=== PATIENT | male | born 1965 | race Caucasian/White ===

== ENCOUNTER 2021-05-14 16:59 | Emergency (ER) | payer BC ==
[2021-05-14] MEDS ORDERED: Pantoprazole 40 MG Vial IVPUSH ONE (19:32)
[2021-05-14] MEDS ORDERED: Ondansetron 4 MG/2 ML SDV IVPUSH PRN (19:32)
[2021-05-14] MEDS: Morphine 4 MG/ML Syringe IVPUSH PRN ×3 (19:47→23:21)
[2021-05-14] MEDS: Sodium Chloride 0.9% 10 ML Syringe FLUSH PRN ×2 (19:48→20:55)
--- NOTE | 2021-05-14 20:29 | EDM.PDOC ---
ED HPI GENERAL MEDICAL PROBLEM - General Chief Complaint: Gastrointestinal Problem Stated Complaint: STOMACH PAIN, BLOODY STOOL Time Seen by Provider: 05/14/21 19:05 Source of Information: Reports: Patient, Family () History Limitations: Reports: No Limitations - History of Present Illness INITIAL COMMENTS - FREE TEXT/NARRATIVE: Patient presents emergency room today secondary to bloody stools at least 15 reported today starting around 6 AM he also reports nausea and vomiting from abdominal pain this a.m. and sweating episodes. Patient states that pain is a 10 out of 10 sharp and achy in nature. He denies any fevers or chills lightheaded dizziness he is constantly moving as noted during my exam secondary to abdominal pain. History is significant for a CT in February that showed questionable lytic lesions. He had a biopsy 2 weeks ago and at this time they are awaiting results states that it is possible multiple myeloma versus an undifferentiated cancer of unknown site with bony mets PMH--anxiety/depression, chronic pain (undiagnosed) Meds--hydrocodone, gabapentin, wellbutrin, flexaril Tob--former EtOH/Drugs--denies Has not had COVID infection, reports having had COVID immunization Onset: Today Onset Time: 06:00 Lower Abdomen Pain Score (Numeric/FACES): 10 - Related Data Allergies Allergy/AdvReac Type Severity Reaction Status Date / Time No Known Allergies Allergy Verified 05/14/21 19:08 Home Meds: Home Meds Cyclobenzaprine [Flexeril] 10 mg PO TID 05/14/21 [History] Gabapentin [Neurontin] 100 mg PO TID 05/14/21 [History] buPROPion HCL [Bupropion Xl] 300 mg PO DAILY 05/14/21 [History] Past Medical History Musculoskeletal History: Reports: Fracture Psychiatric History: Reports: Anxiety, Depression Oncologic (Cancer) History: Reports: Bone Other Oncologic History: possible Bone CA - Infectious Disease History Infectious Disease History: Reports: Chicken Pox, Influenza, Measles, Mumps - Past Surgical History Other GI Surgeries/Procedures: Lypoma removal Social & Family History - Tobacco Use Tobacco Use Status *Q: Never Tobacco User - Caffeine Use Caffeine Use: Reports: Coffee, Soda - Recreational Drug Use Recreational Drug Use: No ED ROS GENERAL - Review of Systems Review Of Systems: Comprehensive ROS is negative, except as noted in HPI. Constitutional: Denies: Fever, Chills GI/Abdominal: Reports: Abdominal Pain, Bloody Stool, Diarrhea, Nausea, Vomiting ED EXAM, GENERAL - Physical Exam Exam: See Below Exam Limited By: No Limitations General Appearance: Alert, WD/WN, Moderate Distress (Secondary to abdominal pain is apparent that he is quite uncomfortable as he is moving around in bed quite frequently been up and down) Eye Exam: Bilateral Eye: EOMI, Normal Inspection, PERRL Ears: Normal External Exam, Hearing Grossly Normal Nose: Normal Inspection Throat/Mouth: Normal Inspection, Normal Lips, Normal Oropharynx, Normal Voice, No Airway Compromise Head: Atraumatic, Normocephalic Neck: Normal Inspection, Supple, Non-Tender, Full Range of Motion. No: Lymphadenopathy (R), Lymphadenopathy (L) Respiratory/Chest: No Respiratory Distress, Lungs Clear, Normal Breath Sounds Cardiovascular: Normal Peripheral Pulses, Regular Rate, Rhythm, No Edema, No Murmur Peripheral Pulses: 2+: Radial (L), Radial (R), Dorsalis Pedis (L), Dorsalis Pedis (R) GI/Abdominal: Soft, Tender (Patient has diffuse abdominal tenderness that is focal in the lower abdominal area), Abnormal Bowel Sounds (Bowel sounds are decreased in nature hypoactive throughout) (Male) Exam: Deferred Rectal (Males) Exam: Normal Exam, Heme + Stool, Hemorrhoids (Hemorrhoid is noted to be around 5:00 it is swollen and tender). No: Bloody Stool, Decreased Rectal Tone Back Exam: Normal Inspection, Full Range of Motion Extremities: Normal Inspection, Normal Range of Motion, No Pedal Edema, Normal Capillary Refill Neurological: Alert, Oriented, CN II-XII Intact, Normal Cognition, No Motor/Sensory Deficits Psychiatric: Normal Affect, Normal Mood Skin Exam: Warm, Dry, Intact, Normal Color Course - Vital Signs Text/Narrative:: 2029--initial labs have been reviewed noted to have mildly elevated white blood cell count at 16, stable H&H at 14.3/41.5 he does have 82% neutrophil shift. Also is noted to have a anion gap of 18 and Hemoccult positive. Additional labs were ordered to include lactic acid blood cultures and IV antibiotics have been ordered. CT abdomen pelvis has been ordered. 2036--patient updated on lab results further lab testing and recommendation for CT of abdomen and pelvis. He states that pain medication did markedly help with his pain he is resting comfortably at this time I did discuss with him that should more pain medication be needed he would just need to ask the ER nurse patient verbalized understanding agreement with plan of care at this time 2209--lactate is negative at 1.2. Still awaiting CT abdomen pelvis results 2216--see if call from radiology regarding CT results specifically noted for wall thickening from descending colon down there is a low probability of ischemic bowel although given mild changes radiologist feels low likelihood. She does comment on multiple lytic lesions noted suggestive highly for multiple myeloma. Specifically she remarked on the pathological fracture noted on the left seventh rib as well as areas on the acetabulum on the right side for a near complete erosion that is likely too soon result in a pathological fracture. See final report for full details 2236in room to discussed with patient and at bedside today's ER findings as well as recommendations and care will discharge on oral antibiotics steroids pain medication and recommend that they return to their local home area for follow-up care regarding PCM and oncology services. I also did discuss with my recommendation to obtain copies of today's ER visit as well as radiological report to take with him back to [facility] for PCM and oncology care follow-up patient and spouse verbalized understanding agreement with plan of care all questions were answered ready for discharge at this time Last Recorded V/S: Last Vital Signs Temp 98.0 F 05/14/21 19:10 Pulse 85 05/14/21 19:10 Resp 18 05/14/21 19:10 BP 114/110 H 05/14/21 19:10 Pulse Ox 99 05/14/21 19:10 - Orders/Labs/Meds Orders: Active Orders 24 hr Category Date Time Status CULTURE BLOOD [BC] Urgent Lab 05/14/21 20:35 Received CULTURE BLOOD [BC] Urgent Lab 05/14/21 20:45 Received PATIENT RETYPE [BBK] Stat Lab 05/14/21 19:44 Results TYPE AND SCREEN [BBK] Stat Lab 05/14/21 19:44 Results Iopamidol [Isovue-300 (61%)] Med 05/14/21 20:45 Active 134 ml IV . DIRECTED Morphine Med 05/14/21 19:31 Active 4 mg IVPUSH Q2H PRN Ondansetron [Zofran] Med 05/14/21 19:32 Active 4 mg IVPUSH Q6H PRN Piperacillin/Tazobactam [Zosyn] 3.375 gm Med 05/14/21 20:30 Active Sodium Chloride 0.9% [Normal Saline] 50 ml IV ONETIME Sodium Chloride 0.9% [Normal Saline] 80 ml Med 05/14/21 20:45 Active IV ASDIRECTED Sodium Chloride 0.9% [Saline Flush] Med 05/14/21 19:31 Active 10 ml FLUSH ASDIRECTED PRN Blood Culture x2 Reflex Set [OM.PC] Urgent Oth 05/14/21 20:27 Ordered Saline Lock Insert [OM.PC] Routine Oth 05/14/21 19:31 Ordered Medication Orders Piperacillin Sod/Tazobactam (Sod 3.375 gm/ Sodium Chloride) 50 mls @ 100 mls/hr IV ONETIME LYNNETTE Last Admin: 05/14/21 21:17 Dose: 100 mls/hr Documented by: ZOFIA Sodium Chloride (Normal Saline) 80 mls @ 3 mls/sec IV ASDIRECTED LYNNETTE Last Admin: 05/14/21 20:55 Dose: 3 mls/sec Documented by: TROY Iopamidol (Iopamidol 612 Mg/Ml 150 Ml Bottle) 134 ml IV . DIRECTED LYNNETTE Last Admin: 05/14/21 20:55 Dose: 134 ml Documented by: TROY Morphine Sulfate (Morphine 4 Mg/Ml Syringe) 4 mg IVPUSH Q2H PRN PRN Reason: Abdominal Pain Last Admin: 05/14/21 21:17 Dose: 4 mg Documented by: Admin: 05/14/21 19:47 Dose: 4 mg Documented by: ZOFIA Ondansetron HCl (Ondansetron 4 Mg/2 Ml Sdv) 4 mg IVPUSH Q6H PRN PRN Reason: Nausea/Vomiting Last Admin: 05/14/21 19:47 Dose: 4 mg Documented by: ZOFIA Sodium Chloride (Sodium Chloride 0.9% 10 Ml Syringe) 10 ml FLUSH ASDIRECTED PRN PRN Reason: Keep Vein Open Last Admin: 05/14/21 20:55 Dose: 10 ml Documented by: Admin: 05/14/21 19:48 Dose: 10 ml Documented by: ZOFIA Labs: Laboratory Tests 05/14/21 05/14/21 05/14/21 Range/Units 19:44 19:44 19:44 WBC 16.0 H (4.5-11.0) K/uL RBC 4.89 (4.30-5.90) M/uL Hgb 14.3 (12.0-15.0) g/dL Hct 41.5 (40.0-54.0) % MCV 85 (80-98) fL MCH 29 (27-31) pg MCHC 35 (32-36) % Plt Count 278 (150-400) K/uL Neut % (Auto) 82.0 H (36-66) % Lymph % (Auto) 10.2 L (24-44) % [place] % (Auto) 7.7 H (2-6) % Eos % (Auto) 0.0 L (2-4) % Baso % (Auto) 0.1 (0-1) % Sodium 137 L (140-148) mmol/L Potassium 4.1 (3.6-5.2) mmol/L Chloride 100 (100-108) mmol/L Carbon Dioxide 23 (21-32) mmol/L Anion Gap 18.1 H (5.0-14.0) mmol/L BUN 26 H (7-18) mg/dL Creatinine 1.0 (0.8-1.3) mg/dL Est Cr Clr Drug Dosing 77.09 mL/min Estimated GFR (MDRD) > 60 (>60) Glucose 105 (74-106) mg/dL Lactic Acid (0.4-2.0) mmol/L Calcium 9.5 (8.5-10.1) mg/dL Total Bilirubin 0.5 (0.2-1.0) mg/dL AST 26 (15-37) U/L ALT 48 (12-78) U/L Alkaline Phosphatase 90 (46-116) U/L Total Protein 8.7 H (6.4-8.2) g/dL Albumin 3.7 (3.4-5.0) g/dL Globulin 5.0 H (2.3-3.5) g/dL Albumin/Globulin Ratio 0.7 L (1.2-2.2) Blood Type AB POSITIVE Gel Antibody Screen Negative 05/14/21 Range/Units 20:27 WBC (4.5-11.0) K/uL RBC (4.30-5.90) M/uL Hgb (12.0-15.0) g/dL Hct (40.0-54.0) % MCV (80-98) fL MCH (27-31) pg MCHC (32-36) % Plt Count (150-400) K/uL Neut % (Auto) (36-66) % Lymph % (Auto) (24-44) % [place] % (Auto) (2-6) % Eos % (Auto) (2-4) % Baso % (Auto) (0-1) % Sodium (140-148) mmol/L Potassium (3.6-5.2) mmol/L Chloride (100-108) mmol/L Carbon Dioxide (21-32) mmol/L Anion Gap (5.0-14.0) mmol/L BUN (7-18) mg/dL Creatinine (0.8-1.3) mg/dL Est Cr Clr Drug Dosing mL/min Estimated GFR (MDRD) (>60) Glucose (74-106) mg/dL Lactic Acid 1.2 (0.4-2.0) mmol/L Calcium (8.5-10.1) mg/dL Total Bilirubin (0.2-1.0) mg/dL AST (15-37) U/L ALT (12-78) U/L Alkaline Phosphatase (46-116) U/L Total Protein (6.4-8.2) g/dL Albumin (3.4-5.0) g/dL Globulin (2.3-3.5) g/dL Albumin/Globulin Ratio (1.2-2.2) Blood Type Gel Antibody Screen Meds: Medications Generic Name Dose Route Start Last Admin Trade Name Freq PRN Reason Stop Dose Admin Piperacillin Sod/Tazobactam 50 mls @ 100 mls/hr 05/14/21 20:30 05/14/21 21:17 Sod 3.375 gm/ Sodium Chloride IV 100 mls/hr ONETIME LYNNETTE Administration Sodium Chloride 80 mls @ 3 mls/sec 05/14/21 20:45 05/14/21 20:55 Normal Saline IV 3 mls/sec ASDIRECTED LYNNETTE Administration Iopamidol 134 ml 05/14/21 20:45 05/14/21 20:55 Iopamidol 612 Mg/Ml 150 Ml Bottle IV 134 ml . DIRECTED LYNNETTE Administration Morphine Sulfate 4 mg 05/14/21 19:31 05/14/21 21:17 Morphine 4 Mg/Ml Syringe IVPUSH 4 mg Q2H PRN Administration Abdominal Pain Ondansetron HCl 4 mg 05/14/21 19:32 05/14/21 19:47 Ondansetron 4 Mg/2 Ml Sdv IVPUSH 4 mg Q6H PRN Administration Nausea/Vomiting Sodium Chloride 10 ml 05/14/21 19:31 05/14/21 20:55 Sodium Chloride 0.9% 10 Ml Syringe FLUSH 10 ml ASDIRECTED PRN Administration Keep Vein Open Discontinued Medications Generic Name Dose Route Start Last Admin Trade Name Freq PRN Reason Stop Dose Admin Pantoprazole Sodium 40 mg 05/14/21 19:32 05/14/21 19:48 Pantoprazole 40 Mg Vial IVPUSH 05/14/21 19:33 40 mg ONETIME ONE Administration - Radiology Interpretation Free Text/Narrative:: CT abdomen pelvis final report-- #1 mild wall thickening of the descending and sigmoid portions of colon represent nonspecific colitis versus ischemia 2 innumerable lytic lesions throughout the skeleton likely due to multiple myeloma large lytic lesion on T9 vertebrae with cortical breakthrough of the inferior endplate large lytic lesion in the right acetabular roof with cortical breakthrough adjacent to the femoral head and pathological fracture of right lateral seventh rib Departure - Departure Time of Disposition: 23:00 Disposition: Home, Self-Care 01 Condition: Good Clinical Impression: Colitis, Lytic bone lesions on xray, Pathological fracture of rib of right side - Discharge Information *PRESCRIPTION DRUG MONITORING PROGRAM REVIEWED*: Yes *COPY OF PRESCRIPTION DRUG MONITORING REPORT IN PATIENT FERNANDO: Yes Instructions: Dehydration, Adult, [id number], Nausea and Vomiting, Adult, [id number], Pain Medicine Instructions, [id number], Bloody Diarrhea, Colitis Referrals: PCP,None [Primary Care Provider] - Forms: ED Department Discharge Additional Instructions: Ensure that you are drinking plenty of fluidswater, juices, sports drinks of choice to stay well-hydrated. When you are feeling better your appetite will improve return and you can advance diet slowly Tonight in the emergency room you were given your initial dose of IV antibiotic that you are oral antibiotics for home do not need to be started until the morning. You have also been provided with Rufus 5/325 number 18 tablets to be used 1 to 2 tablets every 4-6 hours. Please ensure that you get a pain management plan arranged through your primary care provider or your oncologist for ongoing pain management/pain medication needs. I have also provided you with a reflux medication to see if that helps with stomach upset by decreasing stomach acid as well as ondansetron for any nausea or vomiting. Have also provided you with some prednisone please take all doses in the morning with food starting tomorrow as you were given your initial dose in the emergency room tonight in your IV Contact your primary care provider and/or oncologist at home regarding continue medical care as well as findings in today's ER visit. As discussed it was recommended that you come back to [facility] tomorrow during the daytime in order to obtain a copy of uday's ER visit and radiological report. We will provide you with a CT disc tonight prior to discharge You have any further questions or concerns he may return to this emergency room or follow-up with your primary care provider for further evaluation and care Sepsis Event Note (ED) - Evaluation Sepsis Screening Result: No Definite Risk - Focused Exam Vital Signs: Vital Signs Temp Pulse Resp BP Pulse Ox 05/14/21 19:10 98.0 F 85 18 114/110 H 99 05/14/21 19:02 98.0 F 85 18 114/110 H 99 - My Orders Last 24 Hours: My Active Orders 05/14/21 19:31 Morphine 4 mg IVPUSH Q2H PRN Sodium Chloride 0.9% [Saline Flush] 10 ml FLUSH ASDIRECTED PRN Saline Lock Insert [OM.PC] Routine 05/14/21 19:32 Ondansetron [Zofran] 4 mg IVPUSH Q6H PRN 05/14/21 19:44 PATIENT RETYPE [BBK] Stat TYPE AND SCREEN [BBK] Stat 05/14/21 20:27 Blood Culture x2 Reflex Set [OM.PC] Urgent 05/14/21 20:30 Piperacillin/Tazobactam [Zosyn] 3.375 gm Sodium Chloride 0.9% [Normal Saline] 50 ml IV ONETIME 05/14/21 20:35 CULTURE BLOOD [BC] Urgent 05/14/21 20:45 CULTURE BLOOD [BC] Urgent Iopamidol [Isovue-300 (61%)] 134 ml IV . DIRECTED Sodium Chloride 0.9% [Normal Saline] 80 ml IV ASDIRECTED - Assessment/Plan Last 24 Hours: My Active Orders 05/14/21 19:31 Morphine 4 mg IVPUSH Q2H PRN Sodium Chloride 0.9% [Saline Flush] 10 ml FLUSH ASDIRECTED PRN Saline Lock Insert [OM.PC] Routine 05/14/21 19:32 Ondansetron [Zofran] 4 mg IVPUSH Q6H PRN 05/14/21 19:44 PATIENT RETYPE [BBK] Stat TYPE AND SCREEN [BBK] Stat 05/14/21 20:27 Blood Culture x2 Reflex Set [OM.PC] Urgent 05/14/21 20:30 Piperacillin/Tazobactam [Zosyn] 3.375 gm Sodium Chloride 0.9% [Normal Saline] 50 ml IV ONETIME 05/14/21 20:35 CULTURE BLOOD [BC] Urgent 05/14/21 20:45 CULTURE BLOOD [BC] Urgent Iopamidol [Isovue-300 (61%)] 134 ml IV . DIRECTED Sodium Chloride 0.9% [Normal Saline] 80 ml IV ASDIRECTED
[2021-05-14] MEDS ORDERED: Piperacillin/Tazobactam 3.375 GM in Sodium Chloride 0.9% 50 ML IV SCH (20:30)
[2021-05-14] MEDS ORDERED: Iopamidol 612 MG/ML 150 ML Bottle IV SCH (20:45)
[2021-05-14] MEDS ORDERED: Sodium Chloride 0.9% 80 ML IV SCH (20:45)
--- NOTE | 2021-05-14 22:21 | CRLCT ---
For Patients: As a result of the Century Cures Act, medical imaging exams and procedure reports are released immediately into your electronic medical record. You may view this report before your referring provider. If you have questions, please contact your health care provider. INDICATION: Lower abdominal pain with bloody stools TECHNIQUE: CT abdomen and pelvis acquired with 134 cc Isovue-300 IV contrast. COMPARISON: None FINDINGS: Lower chest: Unremarkable. Liver: The hepatic dome is excluded from imaging on the basis of patient positioning. Simple cyst in the right hepatic lobe. Spleen: Tiny calcified granulomata. Pancreas: Unremarkable. Gallbladder and bile ducts: Unremarkable. Adrenal glands: Unremarkable. Kidneys: Unremarkable. GI tract: Mild circumferential wall thickening of the descending and sigmoid portions of the colon. Colonic diverticulosis without evidence for diverticulitis. Appendix is normal. Vascular structures: Minimal aortoiliac calcifications. Lymph nodes: Unremarkable. Miscellaneous: Unremarkable. No free air or significant free fluid. Pelvic Organs: Unremarkable. Bones: Innumerable lytic lesions throughout the skeleton. Pathologic fracture of the right lateral 7th rib. 3.8 x 2.5 x 2.2 cm lytic lesion in the right acetabular roof with cortical breakthrough adjacent to the femoral head. There is a 1.4 x 1.1 cm lytic lesion in the T9 vertebrae with cortical breakthrough involving the inferior endplate. IMPRESSION: Mild wall thickening of the descending and sigmoid portions of the colon may represent a nonspecific colitis versus ischemia. Innumerable lytic lesions throughout the skeleton likely due to multiple myeloma. Large lytic lesion in the T9 vertebrae with cortical breakthrough of the inferior endplate. Large lytic lesion in the right acetabular roof with cortical breakthrough adjacent to the femoral head. Pathologic fracture of the right lateral 7th rib. Findings discussed with Dr. Burleson at 10:16 p.m. on May 14, 2021. Please note that all CT scans at this facility use dose modulation, iterative reconstruction, and/or weight-based dosing when appropriate to reduce radiation dose to as low as reasonably achievable. Dictated by Renee Paulino MD @ 05/14/2021 10:19:[address] Renee Paulino @ May 14 2021 10:19PM
[2021-05-14] MEDS ORDERED: methylPREDNISolone Sodium Succinate 125 MG/2 ML SDV IVPUSH ONE (22:50)
== END 2021-05-14 23:52 | disposition home or self-care (01) ==
LOC: JP.ED 16:59
DX: K52.9 Noninfective gastroenteritis and colitis, unspecified (principal); M89.9 Disorder of bone, unspecified; M84.48XA Pathological fracture, other site, initial encounter for fracture; Z87.891 Personal history of nicotine dependence
CPT/HCPCS: 36415; 74177; 80053; 82272; 83605; 85025; 86850; 86900; 86901; 87040; 96365; 96375; 96376; 99284; C9113; J2270; J2405; J2543; J2930; Q9967

== ENCOUNTER 2025-03-26 19:39 | Emergency (ER) | payer BC, MEDICAID ==
[2025-03-26] MEDS: Ondansetron 4 MG/2 ML SDV IVPUSH ONE (21:01)
[2025-03-26 21:02] LABS: BASOPHILS ABSOLUTE AUTO 0.04 K/uL (0.00-0.10); BASOPHILS PERCENT AUTO 0.5 % (0.1-1.3); EOSINOPHILS ABSOLUTE AUTO 0.33 K/uL (0.00-0.40); EOSINOPHILS PERCENT AUTO 4.2 % (0.0-5.4); IMMATURE GRAN ABSOLUTE AUTO 0.05 K/uL (0.00-0.23); IMMATURE GRAN PERCENT AUTO 0.6 % (0.0-0.7); LYMPHOCYTES ABSOLUTE AUTO 0.49 K/uL (0.8-3.3); LYMPHOCYTES PERCENT AUTO 6.3 % (11.4-47.7); MONOCYTES ABSOLUTE AUTO 1.28 K/uL (0.20-0.90); MONOCYTES PERCENT AUTO 16.3 % (3.3-12.6); NEUTROPHILS ABSOLUTE AUTO 5.64 K/uL (1.0-7.6); NEUTROPHILS PERCENT AUTO 72.1 % (40.0-78.1); PLATELET COUNT,PLT 240 K/uL (130-375); RED BLOOD CELL COUNT 4.05 M/uL (4.14-5.76); WHITE BLOOD CELL COUNT,WBC 7.8 K/uL (3.2-11.0)
[2025-03-26 21:25] LABS: A/G RATIO 0.6 (1.2-2.2); ALANINE AMINOTRANSFERASE,ALT 17 U/L (12-78); ASPARTATE AMNIOTRANSFERASE,AST 11 U/L (15-37); BILIRUBIN TOTAL 0.6 mg/dL (0.2-1.0); BLOOD UREA NITROGEN,BUN 9 mg/dL (7-18); CARBON DIOXIDE,CO2 27 mmol/L (21-32); CHLORIDE,CL 89 mmol/L (100-108); CREATININE 0.8 mg/dL (0.8-1.3); EST CRCL DRUG DOSING (CG) 91.93 mL/min; ESTIMATED GFR 103 mL/min (>60); GLUCOSE RANDOM 129 mg/dL (74-106); POTASSIUM,K 3.8 mmol/L (3.6-5.2); PROTEIN TOTAL,TP 7.0 g/dL (6.4-8.2); SODIUM,NA 128 mmol/L (140-148)
[2025-03-26] MEDS: Ketorolac 30 MG/ML SDV IVPUSH ONE (22:17)
== END 2025-03-26 23:32 | disposition home or self-care (01) ==
LOC: JP.ED 19:39
DX: R11.2 Nausea with vomiting, unspecified (principal); E86.0 Dehydration; Z79.899 Other long term (current) drug therapy; Z79.01 Long term (current) use of anticoagulants
CPT/HCPCS: 36415; 80053; 85025; 96361; 96374; 96375; 99284; J1885; J2405; J7030